=== PATIENT | male | born 1955 | race Caucasian/White ===

== ENCOUNTER → 2017-10-16 | Outpatient (CLI) | payer OTHER ==
--- NOTE | 2017-10-16 15:49 | PCVCIMAG ---
APPROVED REPORT Study performed: 10/16/2017 14:22:05 Exam: Stress Echocardiogram Indication: Dyspnea, Elevated Cor Ca+ score,htn Patient Location: Echo lab Stress Nurse: Nelly Pierce RN Room #: 2 Status: routine Ht: 5 ft 11 in HR: 90 bpm BP: 142/62 mmHg Rhythm: NSR Medical History Medical History: HTN, Hyperlipidemia Cardiac Risk Factors: HTN, Hyperlipidemia Pretest Chest Pain Characteristics: No chest pain Exercise History: Physically active Physical Disabilities: Rizwan both femurs,rt hip replaced Procedure The patient underwent an Exercise Stress Test using the Von Protocol. Blood pressure, heart rate, and EKG were monitored. An Echocardiogram was performed by generation technician in four stages in quad fashion. At peak stress, four selected images were obtained and placed side by side with resting images for comparison. Stress Test Details Stress Test: Exercise stress testing was performed using a Von protocol. HR Resting HR: 92 bpmMax Heart Rate (APMHR): 158 bpm Max HR Achieved: 131 bpmTarget HR (85% APMHR): 134 bpm % of APMHR: 82 Recovery HR: 100 bpm HR response to stress: Normal HR response to stress BP Resting BP: 142/62 mmHg Max BP: 180/80 mmHg Recovery BP: 146/74 mmHg ECG Resting ECG: Sinus Rhythm Stress ECG: Sinus Rhythm ST Change: Non-ischemic Arrhythmia: occasional PVCs, rare triplet Recovery ECG: Sinus Rhythm Recovery ST Change: Non-ischemic Recovery Arrhythmia: rare PVCs Clinical Reason for Termination: Maximal effort Stress Symptoms: Leg Fatigue Exercise duration: 6 min 56 sec Highest Stage Achieved: Stage 3: 3.4 mph at 14% grade. Exercise capacity: 7.20 METs Overall Exercise Capacity for Age: Average Scale: Active Angina Score: None Stress ECG Conclusion The patient exercised according to the VON protocol for 6:05 mins; achieving a work level of 7.2 METS. The resting heart rate of 92 bpm toan to a maximum heart rate of 136 bpm. This value represent 86% of the maximal, age-predicted heart rate. The resting blood pressure of 142/62 mmHg, toan to a maximum blood pressure of 180/80 mmHg. The exercise test was stopped due to fatigue and leg discomfort from an old injury. Pre-Stress Echo The resting Echocardiogram showed normal left ventricular contractility with an estimated Ejection Fraction of about 55-60%. Normal wall motion in all segments on baseline images. Post-Stress Echo The stress Echocardiogram showed normal left ventricular contractility with an estimated Ejection Fraction of about 60-65%. Normal augmentation of wall motion in all segments on post stress images. Clinical No clinical or ECG evidence for ischemia. Conclusion Clinical Response: Non-ischemic Exercise Capacity: Below Average Stress ECG Response: Non-ischemic Stress Echo Images: Non-ischemic Non-diagnostic study due to inability of the patient to achieve 85% of maximal HR. No prior study available for comparison. <Conclusion> Non-diagnostic study due to inability of the patient to achieve 85% of maximal HR.
== END | disposition home or self-care (01) ==
LOC: PCVCIMAG 15:26
PROVIDERS: ATTEND Internal Medicine Cardiovascular Disease
DX: I10 Essential (primary) hypertension (principal); R06.09 Other forms of dyspnea; E78.5 Hyperlipidemia, unspecified
CPT/HCPCS: 93325; 93351

== ENCOUNTER → 2017-10-24 | Outpatient (CLI) | payer OTHER ==
[~2017-10-24] MED LIST: REGADENOSON 0.4 MG/5 ML DISP.SYRIN. IV ONE
--- NOTE | 2017-10-24 15:31 | PCVCIMAG ---
APPROVED REPORT Imaging Protocol: Rest Tc-99m/Stress Tc-99m 1 day Study performed: 10/24/2017 13:17:03 Indication: Dyspnea, CAD, CA Score >1800, Submaximal SE Patient Location: Out-Patient Stress Nurse: Nelly Pierce RN, Bev Ribera RN IN Tech:BRICE Lerma Ht: 5 ft 11 in Wt: 195 lbs BSA: 2.09 m2 HR: 80 bpm BP: 140/73 mmHg BMI: 27.19 Rhythm: SR, PVC's Medical History Medical History: Age Medications: Amlodipine, ASA, Livalo Allergies: Codeine Previous Cardiac Procedures: Sub-maximal stress echo Pretest Chest Pain Characteristics: No chest pain Exercise History: Physically active Physical Disabilities: Legs Resting Data Rest SPECT myocardial perfusion imaging was performed in supine position 45 minutes following the intravenous injection of 11.3 mCi of Tc-99m Sestamibi. Time of rest injection: 1240 Administration Route: IV Administration Site: Right AC Pharmacologic Stress Pharmacologic stress test was performed by injecting Regadenoson 0.4 mg IV push over 10-15 seconds immediately followed by the intravenous injection of 34 mCi of Tc-99m Sestamibi. Time of stress injection: 1400 Date: 10/24/2017 Administration Route: IV Administration Site: Right AC Gated Stress SPECT was performed 45 minutes after stress injection. The images were gated to evaluate regional wall motion and calculate left ventricular ejection fraction. Stress Test Details Stress Test: Pharmacologic stress was paired with low level exercise. Reason for pharmacologic stress test: physical limitation. HRMax Heart Rate (APMHR): 158 bpm Resting HR: 80 bpmTarget HR (85% APMHR): 134 bpm Max HR Achieved: 117 bpm % of APMHR: 74 Recovery HR: 88 bpm BP Resting BP: 140/73 mmHg Recovery BP: 151/74 mmHg ECG Resting ECG: Sinus Rhythm Stress ECG: Sinus Tachycardia ST Change: Non-ischemic Arrhythmia: VPC's Recovery ECG: Sinus Rhythm Clinical Reason for Termination: Completed protocol Stress Symptoms: Dyspnea, Headache Exercise duration: 4 min 00 sec Exercise capacity: 1.6 METs Symptoms resolved with caffeine. Study Quality Study: Good Artifact: Mild Diaphragmatic artifact Study Data Post stress, the left ventricular ejection was 71%.. SSS: 0 SRS: 0 SDS: 0 TID = 0.90. Perfusion There is a small area of mildly reduced uptake in the basal segment of the inferior wall which is seen on the stress images as well as the resting images. This area thickens and moves normally and is most consistent with attenuation artifact. Wall Motion Normal left ventricular wall motion. Nuclear Conclusion ECG Findings: negative for ischemia Clinical Findings: non-diagnostic Nuclear Findings: negative for ischemia Exercise Capacity: not assessed Left Ventricular Function: normal Risk Study: low This study is of low probability for inducible ischemia or prior infarct. Normal global and segmental LV systolic function. Artifact: Mild Diaphragmatic artifact
== END | disposition home or self-care (01) ==
LOC: PCVCIMAG 13:39
PROVIDERS: ATTEND Internal Medicine Cardiovascular Disease
DX: I25.10 Atherosclerotic heart disease of native coronary artery without angina pectoris (principal); R06.09 Other forms of dyspnea
CPT/HCPCS: 78452; 93017; A9500; J2785